=== PATIENT | female | born 1990 | race Caucasian/White ===

== ENCOUNTER 2019-09-23 23:38 | Emergency (ER) | payer BC ==
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
[~2019-09-23 23:38] MED LIST: Lactated Ringers 1,000 ML IV ONE
[2019-09-23] MEDS ORDERED: Bacitracin Oint 1 GM U/D Packet TOP ONE (23:57)
[2019-09-24 00:04] LABS: ANION GAP 13.2 mEq/L (7-13); CHLORIDE,CL 103 mmol/L (98-107); SODIUM,NA 140 mmol/L (136-145)
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
[2019-09-24] MEDS ORDERED: Mupirocin Oint 22 GM Tube ONE (01:41)
== END 2019-09-24 01:56 | disposition home or self-care (01) ==
LOC: DL.ED 23:38
DX: T20.22XA Burn of second degree of lip(s), initial encounter (principal); T20.16XA Burn of first degree of forehead and cheek, initial encounter; Z91.040 Latex allergy status; Z91.048 Other nonmedicinal substance allergy status; X03.0XXA Exposure to flames in controlled fire, not in building or structure, initial encounter
CPT/HCPCS: 16020; 36415; 71045; 80053; 83735; 85025; 99283; A9270; J7120